=== PATIENT | female | born 1995 ===

== ENCOUNTER 2017-09-09 19:59 | Emergency (ER) | payer SELFPAY ==
[2017-09-09 23:05] LABS: Bacteria,Urine 2+ /HPF (Negative); Bilirubin,Urine NEG (Negative); Blood,Urine MOD (Negative); Color,Urine Yellow (Yellow); Mucus,Urine 3+ /HPF
[2017-09-09 23:09] LABS: WBC,Urine > 182.0 /HPF (0.0-6.0)
[2017-09-09 23:15] LABS: HCG Qualitative,Urine Negative (Negative)
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
[2017-09-10] MEDS ORDERED: XYLOCAINE 1% MPF 5 mL INFILTRATI ONE (00:33)
[2017-09-10] MEDS ORDERED: ROCEPHIN IM ONE ×2 (00:33→02:47)
[2017-09-10] MEDS ORDERED: MOTRIN PO ONE (00:33)
--- NOTE | 2017-09-10 00:35 | Emergency Department Report ---
ED Back Pain/Injury HPI - General Chief Complaint: Back Pain/Injury Stated Complaint: LOWER BACK,URINATING PAIN Time Seen by Provider: 09/10/17 00:32 Source: patient Limitations: No Limitations - History of Present Illness Initial Comments: 22-year-old female past medical history none presents with complaint of 3 days of dysuria and right flank pain. Patient is awake alert and oriented 3. Denies nausea or vomiting but does state she has dysuria increased urinary frequency and some chills. Patient denies chest pain palpitations shortness of breath. Last menstrual period Complaint: back pain Onset/Timin -: days(s) - Related Data Previous Rx's Medication Instructions Recorded Last Taken Type Acetaminophen/Codeine [Tylenol 1 tab PO Q6H PRN #5 tab 09/10/17 Unknown Rx /Codeine # 3 tab] Ibuprofen [Motrin] 800 mg PO Q8HR PRN #20 tablet 09/10/17 Unknown Rx Phenazopyridine [Pyridium] 100 mg PO TID #6 tab 09/10/17 Unknown Rx Sulfamethoxazole/Trimethoprim 1 each PO BID #20 tablet 09/10/17 Unknown Rx [Bactrim DS TAB] Allergies Allergy/AdvReac Type Severity Reaction Status Date / Time No Known Allergies Allergy Unverified 09/09/17 21:43 ED Review of Systems ROS: Stated complaint: LOWER BACK,URINATING PAIN Other details as noted in HPI Constitutional: denies: chills, fever Eyes: denies: eye pain, eye discharge, vision change ENT: denies: ear pain, throat pain Respiratory: denies: cough, shortness of breath, wheezing Cardiovascular: denies: chest pain, palpitations Endocrine: no symptoms reported Gastrointestinal: denies: abdominal pain, nausea, diarrhea Genitourinary: denies: urgency, dysuria, discharge Musculoskeletal: denies: back pain, joint swelling, arthralgia Skin: denies: rash, lesions Neurological: denies: headache, weakness, paresthesias Psychiatric: denies: anxiety, depression Hematological/Lymphatic: denies: easy bleeding, easy bruising ED Past Medical Hx - Past Medical History Previous Medical History?: Yes Additional medical history: back pain - Surgical History Past Surgical History?: No - Social History Smoking Status: Never Smoker Substance Use Type: None - Medications Home Medications: Home Medications Medication Instructions Recorded Confirmed Last Taken Type Acetaminophen/Codeine [Tylenol 1 tab PO Q6H PRN #5 tab 09/10/17 Unknown Rx /Codeine # 3 tab] Ibuprofen [Motrin] 800 mg PO Q8HR PRN #20 tablet 09/10/17 Unknown Rx Phenazopyridine [Pyridium] 100 mg PO TID #6 tab 09/10/17 Unknown Rx Sulfamethoxazole/Trimethoprim 1 each PO BID #20 tablet 09/10/17 Unknown Rx [Bactrim DS TAB] ED Physical Exam - General Limitations: No Limitations General appearance: alert, in no apparent distress - Head Head exam: Present: atraumatic, normocephalic - Eye Eye exam: Present: normal appearance, PERRL, EOMI - ENT ENT exam: Present: mucous membranes moist - Neck Neck exam: Present: normal inspection - Respiratory Respiratory exam: Present: normal lung sounds bilaterally. Absent: respiratory distress - Cardiovascular Cardiovascular Exam: Present: regular rate, normal rhythm. Absent: systolic murmur, diastolic murmur, rubs, gallop - GI/Abdominal GI/Abdominal exam: Present: soft (abdomen soft nontender nondistended), normal bowel sounds - Extremities Exam Extremities exam: Present: normal inspection - Back Exam Back exam: Present: normal inspection, CVA tenderness (R) - Neurological Exam Neurological exam: Present: alert, oriented X3, CN II-XII intact, normal gait - Psychiatric Psychiatric exam: Present: normal affect, normal mood - Skin Skin exam: Present: warm, dry, intact, normal color. Absent: rash ED Course Vital Signs 09/09/17 09/10/17 21:41 03:48 Temperature 99.3 F 101.2 F H Pulse Rate 102 H 106 H Respiratory 18 18 Rate Blood Pressure 128/68 Blood Pressure 110/61 [Right] O2 Sat by Pulse 100 99 Oximetry ED Medical Decision Making - Lab Data Result diagrams: 09/10/17 00:55 09/10/17 00:55 - Medical Decision Making A/P: Urinary tract infection possible early pyelonephritis [email or web address] [email or web address]_[email or web address]_[email or web address] 2-10 day course of Bactrim, urine culture sent 3-vital signs normal, lactic acid normal, no clinical signs of sepsis at this time 4-I gave patient should precautions to return to the ED if she experiences worsening pain fever chills and inability to tolerate by mouth or associated nausea and vomiting Critical care attestation.: If time is entered above; I have spent that time in minutes in the direct care of this critically ill patient, excluding procedure time. ED Disposition Clinical Impression: Urinary tract infection Qualifiers: Urinary tract infection type: acute pyelonephritis Qualified Code(s): N10 - Acute pyelonephritis Disposition: TO HOME OR SELFCARE Is pt being admited?: No Does the pt Need Aspirin: No Condition: Stable Instructions: Urinary Tract Infection in Women (ED), Acute Pyelonephritis (ED) , Dysuria (ED) Prescriptions: Acetaminophen/Codeine [Tylenol /Codeine # 3 tab] 1 tab PO Q6H PRN #5 tab PRN Reason: Pain Ibuprofen [Motrin] 800 mg PO Q8HR PRN #20 tablet PRN Reason: Fever Phenazopyridine [Pyridium] 100 mg PO TID #6 tab Sulfamethoxazole/Trimethoprim [Bactrim DS TAB] 1 each PO BID #20 tablet Referrals: [facility] [Provider Group] - 3-5 Days [facility] [Outside] - 3-5 Days Forms: Work/School Release Form(ED) Time of Disposition: 03:27
[2017-09-10 01:07] LABS: Basophils % (Auto) 0.3 % (0.0-1.8); Eosinophils # (Auto) 0.1 K/mm3 (0.0-0.4); Eosinophils % (Auto) 0.5 % (0.0-4.3); Hematocrit 38.1 % (30.3-42.9); Hemoglobin 12.7 gm/dl (10.1-14.3); Lymphocytes # (Auto) 0.8 K/mm3 (1.2-5.4); Lymphocytes % (Auto) 7.6 % (13.4-35.0); Mean Corpuscular HGB Conc 33 % (30-34); Mean Corpuscular Hemoglobin 31 pg (28-32); Mean Corpuscular Volume 93 fl (79-97); Monocytes # (Auto) 0.7 K/mm3 (0.0-0.8); Monocytes % (Auto) 6.3 % (0.0-7.3); Platelet Count 216 K/mm3 (140-440); Red Blood Count 4.08 M/mm3 (3.65-5.03); Red Cell Distribution Width 13.1 % (13.2-15.2)
[2017-09-10 01:26] LABS: BUN/Creatinine Ratio 24; Blood Urea Nitrogen 17 mg/dL (7-17); Calcium 8.9 mg/dL (8.4-10.2); Hemolysis Index 2
[2017-09-10] MEDS ORDERED: NORCO 5/325 PO ONE (02:00)
[2017-09-10] MEDS ORDERED: ZOFRAN ODT PO ONE (02:00)
--- NOTE | 2017-09-10 02:31 | Ultrasound Report ---
FINAL REPORT EXAM: US RENAL BILAT HISTORY: right flank pain COMPARISON: None available. TECHNIQUE: Several real-time grayscale and color Doppler images were obtained. FINDINGS: Right kidney measures 11.0 x 4.7 x 5.2 centimeters. Cortex 1.6 centimeters. Left kidney measures 9.8 x 4.6 x 4.0 centimeters. Cortex 1.5 centimeters. No hydronephrosis bilaterally. Inferior right kidney there is a 1.4 x 1.3 x 1.4 centimeter cyst. There is vascular flow to the bilateral kidneys. Punctate nonobstructive renal calculi could be obscured by renal sinus fat. Visualize urinary bladder is unremarkable. IMPRESSION: 1.4 centimeter inferior right renal cyst. No hydronephrosis bilaterally.
[2017-09-10] MEDS ORDERED: MOTRIN ONE (02:47)
[2017-09-10] MEDS ORDERED: TYLENOL PO ONE (03:42)
[2017-09-10] MEDS ORDERED: TYLENOL ONE (03:42)
[2017-09-10 03:49] VITALS: BP 110/61
== END 2017-09-10 04:51 | disposition home or self-care (01) ==
LOC: ED 19:59
DX: N39.0 Urinary tract infection, site not specified (principal)
CPT/HCPCS: 36415; 72100; 76770; 80048; 81001; 81025; 82140; 85025; 87076; 87086; 87186; 96372; 99284; J0696; Q0162